=== PATIENT | male | born 1980 | race Caucasian/White ===

== ENCOUNTER 2017-01-11 12:28 | Emergency (ER) | payer OTHER ==
[~2017-01-11] VITALS: Ht 182.9 cm; Wt 113.4 kg
[2017-01-11 12:32] VITALS: BP 150/85
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
[2017-01-11] MEDS ORDERED: IBUPROFEN800 M1 PO (13:51)
[2017-01-11] MEDS ORDERED: CYCLOBENZAPRINE10 M1 PO (13:51)
== END 2017-01-11 14:05 ==
LOC: ERH 12:28
DX: S29.012A Strain of muscle and tendon of back wall of thorax, initial encounter (principal); V49.40XA Driver injured in collision with unspecified motor vehicles in traffic accident, initial encounter; Y92.410 Unspecified street and highway as the place of occurrence of the external cause